=== PATIENT | female | born 1995 | race Caucasian/White ===

== ENCOUNTER 2016-12-02 18:59 | Emergency (ER) | payer MEDICAID ==
[2016-12-02 19:13] VITALS: BMI 39.9
[2016-12-02 19:17] VITALS: TEMP 98.5
--- NOTE | 2016-12-02 19:52 | ED PDOC ---
Arrival/HPI - General Chief Complaint: Lower Extremity Problem/Injury Time Seen by Provider: 12/02/16 19:22 Historian: Patient - History of Present Illness Narrative History of Present Illness (Text): 12/02/16 19:33 A 21 year old female, with no known medical history, presents to the emergency department complaining of bilateral foot pain for 10 days. Patient reports that her feet are swollen and the top side of both feet. Patient has taken no medications for the pain. She mentions that when she stands up quickly, she hears a slight cracking sound. Also, patient reports this is the first time she experiences these symptoms. She does note that the pain is worse with raising her foot and feels some calf and thigh pain when she does that. She also notes that she travelled to to [place] last month. Patient notes she experiences more pain on the right foot than the left foot, but denies any joint pain, fever, chills, or any other complaints. PMD: Dr. Hilario Time/Duration: < week (10 days) Symptom Onset: Sudden Symptom Course: Unchanged Activities at Onset: Rest, Light Past Medical History - Provider Review Nursing Documentation Reviewed: Yes - Travel History If Yes, travel location?: [facility], [place], [facility] - Infectious Disease Hx of Infectious Diseases: None - Psychiatric Hx Substance Use: No - Surgical History Other/Comment: cyst on the ovary removed - Anesthesia Hx Anesthesia: Yes Hx Anesthesia Reactions: No Family/Social History - Physician Review Nursing Documentation Reviewed: Yes Family/Social History: No Known Family HX Smoking Status: Never Smoked Hx Alcohol Use: No Hx Substance Use: No Allergies/Home Meds Allergies/Adverse Reactions: Allergies No Known Allergies Allergy (Verified 12/02/16 19:13) Review of Systems - Physician Review All systems were reviewed & negative as marked: Yes - Review of Systems Constitutional: absent: Fevers, Night Sweats Musculoskeletal: Other (bilateral foot pain; no calf pain). absent: Joint Swelling (no joint pain) Physical Exam Vital Signs Reviewed: Yes Vital Signs Temp Pulse Resp BP Pulse Ox 12/02/16 19:16 98.5 F 76 19 116/83 97 Temperature: Afebrile Blood Pressure: Normal Pulse: Regular Respiratory Rate: Normal Appearance: Positive for: Well-Appearing Pain Distress: None Mental Status: Positive for: Alert and Oriented X 3 - Systems Exam Head: Present: Atraumatic, Normocephalic Mouth: Present: Moist Mucous Membranes Back: Present: Normal Inspection Upper Extremity: Present: Normal Inspection, NORMAL PULSES. No: Cyanosis, Edema Lower Extremity: Present: Normal Inspection, NORMAL PULSES. No: Edema Neurological: Present: GCS=15, CN II-XII Intact, Speech Normal Skin: Present: Warm, Dry, Normal Color. No: Rashes Psychiatric: Present: Alert, Oriented x 3, Normal Insight, Normal Concentration Medical Decision Making ED Course and Treatment: 12/02/16 19:40 Impression: 21 year old female with bilateral foot pain. Normal physical exam. Plan: -- Left foot X-ray -- Right foot X-ray -- Lower Extremity Ultrasound -- Reassess and disposition Progress Notes: 12/02/16 22:45 X-ray is negative and sono showing no DVT. Will recommend changing shoes, using naprosyn, and leg elevation. - RAD Interpretation Radiology Orders: 12/02/16 19:38 FOOT LEFT 3 VIEWS ROUTINE [RAD] Stat FOOT RIGHT 3 VIEWS ROUTINE [RAD] Stat 12/02/16 21:23 DUPLEX LOWER EXTRM VEIN BILAT [US] Stat - Medication Orders Current Medication Orders: Discontinued Medications Ibuprofen (Motrin Tab) 600 mg PO STAT STA Stop: 12/02/16 19:38 Last Admin: 12/02/16 20:11 Dose: 600 mg - Scribe Statement The provider has reviewed the documentation as recorded by the Pablo Caldera Provider Scribe Attestation: All medical record entries made by the Jaceyibkayla were at my direction and personally dictated by me. I have reviewed the chart and agree that the record accurately reflects my personal performance of the history, physical exam, medical decision making, and the department course for this patient. I have also personally directed, reviewed, and agree with the discharge instructions and disposition. Disposition/Present on Arrival - Present on Arrival Any Indicators Present on Arrival: No History of DVT/PE: No History of Uncontrolled Diabetes: No Urinary Catheter: No History of Decub. Ulcer: No History Surgical Site Infection Following: None - Disposition Have Diagnosis and Disposition been Completed?: Yes Diagnosis: Foot pain, bilateral Disposition: HOME/ ROUTINE Disposition Time: 22:45 Patient Plan: Discharge Patient Problems: Current Active Problems Problem Status Onset Foot pain, bilateral Acute Condition: GOOD Additional Instructions: Recommend changing your footwear and leg/foot elevation. Take the naprosyn as prescribed. Follow up with podiatry as needed. Return to the emergency department if any new concerning symptoms. Prescriptions: Naproxen [Naprosyn Tab] 1 tab PO BID PRN #20 tab PRN Reason: Pain, Moderate (4-7) Referrals: Niraj Hilario MD [Primary Care Provider] - Follow up with primary Kelsey Cruz DPM [Staff Provider] - Follow up with primary Forms: [employer] ([place])
[2016-12-02 23:01] VITALS: BP 118/76; PULSE 68; RESP 18; O2SAT 98
--- NOTE | 2016-12-03 07:44 | RAD ---
PROCEDURE: Right Foot Radiographs. HISTORY: b/L foot pain dorsum COMPARISON: None. FINDINGS: BONES: Normal. No fracture. JOINTS: Normal. SOFT TISSUES: Normal. OTHER FINDINGS: None. IMPRESSION: Normal right foot radiographs.
--- NOTE | 2016-12-03 07:44 | RAD ---
PROCEDURE: Left Foot Radiographs. HISTORY: b/L foot pain; dorsum COMPARISON: None. FINDINGS: BONES: Normal. No fracture. JOINTS: Normal. SOFT TISSUES: Normal. OTHER FINDINGS: None. IMPRESSION: Normal left foot radiographs.
--- NOTE | 2016-12-03 08:28 | US ---
HISTORY: Leg pain and swelling. Evaluate for DVT PHYSICIAN(S): Dre Layton MD. TECHNIQUE: Duplex sonography and color-flow Doppler with graded compression were used to evaluate the deep venous systems of both lower extremities. FINDINGS: The visualized deep venous systems of both lower extremities are sonographically normal and compressible. Normal wave forms and augmentation are seen. There is no sonographic evidence for deep venous thrombosis in the visualized segments of both lower extremities. IMPRESSION: No sonographic evidence for deep venous thrombosis in the visualized segments of both lower extremities.
== END 2016-12-02 23:01 | disposition home or self-care (01) ==
LOC: ED 18:59
DX: M79.671 Pain in right foot (principal); M79.672 Pain in left foot